=== PATIENT | female | born 1950 | race Caucasian/White ===

== ENCOUNTER → 2017-05-14 | Outpatient (CLI) | payer MEDICARE, OTHER ==
[~2017-05-14] MED LIST: ASPIR 8181 M1 PO; CALCIUM 600 +1 EAC1 PO; CENTRUM SILVER1 EAC4 PO; DIOVAN HCT 11 TABLET PO; GLUCOSAMINE &1 EAC1 PO; LIPITOR20 MG PO; MELATONIN5 M1 PO; MOTRIN600 MG PO; NORCO 5/3251 TABLET PO; SANCTURA20 MG PO; STOOL SOFTENER100 M1 PO; TYLENOL EXTRA500 MG PO; ZANTAC150 MG PO
== END | disposition home or self-care (01) ==
LOC: CDC 10:47
DX: Z01.810 Encounter for preprocedural cardiovascular examination (principal); R94.31 Abnormal electrocardiogram [ECG] [EKG]
CPT/HCPCS: 93000

== ENCOUNTER 2017-05-18 05:24 | Day surgery (SDC) | payer OTHER ==
[~2017-05-18] VITALS: Ht 162.6 cm; Wt 98.8 kg
[~2017-05-18 05:24] MED LIST changes: -MOTRIN600 MG PO; -NORCO 5/3251 TABLET PO
[2017-05-18 05:56] VITALS: BP 163/75
[2017-05-18] MEDS ORDERED: NORCO 5/3251 TABLET PO (08:24)
[2017-05-18] MEDS ORDERED: MOTRIN600 MG PO (08:24)
[2017-05-18 09:02] VITALS: BP 136/68
[2017-05-18 10:00] VITALS: BP 141/65
== END 2017-05-18 10:00 | disposition home or self-care (01) ==
LOC: SDC 05:24
DX: N84.0 Polyp of corpus uteri (principal); I10 Essential (primary) hypertension; Z79.82 Long term (current) use of aspirin; I65.29 Occlusion and stenosis of unspecified carotid artery; K21.9 Gastro-esophageal reflux disease without esophagitis; E78.5 Hyperlipidemia, unspecified; E66.9 Obesity, unspecified; Z68.36 Body mass index [BMI] 36.0-36.9, adult
CPT/HCPCS: 88305; J2250; J2405; J3010